=== PATIENT | female | born 1965 | race Caucasian/White ===

== ENCOUNTER 2017-03-07 02:51 | Emergency (ER) | payer OTHER ==
[2017-03-07] MEDS ORDERED: HYDROmorphONE/DILAUDID 1 MG/ML INJ IVP ONE (03:22)
[2017-03-07] MEDS ORDERED: NS 1,000 ML IV ONE (03:22)
[2017-03-07] MEDS ORDERED: ONDANSETRON 4 MG/2 ML VIAL IVP ONE (03:22)
--- NOTE | 2017-03-07 03:26 | EDPHY ---
H & P Time Seen by Provider: 03/07/17 03:15 HPI/ROS: HPI Abdominal pain. 51-year-old female by private vehicle with her daughter. This patient has a history of a hysterectomy with her left ovary removed as well on October 25 of this year. This was secondary to uterine fibroids and endometriosis. She complains of right lower quadrant abdominal pain which she noticed about 10 days ago and described as mild at that time. She reports over the last couple of days and particularly tonight it has gotten much more painful. Her appendix is still in place. Her last meal was earlier this evening at about 6:00 p.m.. Last bowel movement was earlier today. No bloody or melenic stool. Prior surgical history includes as above as well as a laparoscopy secondary to endometriosis. ROS: Constitutional: No fever, no chills. No weakness. Eyes: No discharge. No changes in vision. ENT: No sore throat. No nasal congestion or rhinorrhea. Respiratory: No cough. No shortness of breath. Cardiac: No chest pain, no palpitations. Gastrointestinal: As above, no vomiting, no diarrhea. Genitourinary: No hematuria. No dysuria or increased frequency with urination. Musculoskeletal: No back pain. No neck pain. No myalgias or arthralgias. Skin: No rashes. Neurological: No headache. No focal weakness or altered sensation. Past medical history: As above. Social history: Nonsmoker. No alcohol. Here with her daughter. Physical Exam: General Appearance: Alert, she appears uncomfortable. This patient is responding to questions appropriately and in full sentences. This patient appears well-hydrated and well-nourished. Eyes: Pupils equal and round no pallor or injection. No lid edema, erythema or injection. ENT, Mouth: Mucous membranes are moist. The pharyngeal tissues are unremarkable. No edema or swelling. No asymmetry suggestive of abscess. No erythema or exudates. Respiratory: There are no retractions, lungs are clear to auscultation with good air movement bilaterally. Cardiovascular: Regular rate and rhythm. No murmur. Gastrointestinal: Abdomen is soft with right lower quadrant tenderness on palpation, no masses, bowel sounds normal. No focal tenderness at McBurney's point. No Rivera sign. Neurological: Motor sensory function is grossly intact. Cranial nerves are normal. Gait is normal. Skin: Warm and dry, no rashes. Musculoskeletal: Neck is supple and nontender. Extremities are symmetrical. All joints range without pain or impingement. Psychiatric: No agitation. No depression. Database: EKG: Imaging: CT scan of abdomen and pelvis with IV contrast: The appendix is well visualized and is normal. Constipation is noted. Her right ovary appear small but otherwise unremarkable. No other significant pathology. Results were discussed with staff radiologist Dr. Ad Teixeira. Pelvic ultrasound: Right ovary not visualized. No free fluid. Results discussed with staff radiologist Dr. Ad Teixeira. Procedures: Emergency department course: IV placed. She was placed on a monitor. Her vital signs were reviewed. She is afebrile. Vital signs otherwise normal. She was started on IV normal saline with 1 L to be given over the next hour. She was initially given 0.5 mg of IV hydromorphone and 4 mg of IV Zofran. CT imaging to evaluate for appendicitis was discussed. She endorses. This is unremarkable we will obtain ultrasound imaging to evaluate her right ovary as well. 4:30 a.m., patient re-evaluated. Discussed results of CT with the patient and the daughter. She is feeling better after pain medication as above but still complains of right lower quadrant tenderness. A pelvic ultrasound will be obtained to try him better assess the condition of the right ovary. 5:25 a.m., results of pelvic ultrasound discussed with the patient and her daughter. The patient feels comfortable at this time. Repeat abdominal exam she is soft with mild right lower quadrant tenderness on palpation. I discussed admission for observation but she does not want to do this. Plan will be to have her follow up with her primary care physician for re-evaluation tomorrow. She feels comfortable with this. I will also prescribe magnesium citrate for treatment of constipation. Return to emergency department precautions were thoroughly discussed with her and her daughter. All of their questions were answered. She was discharged home in good condition. Differential Diagnosis: The differential diagnosis on this patient includes but is not limited to appendicitis, right ovarian cyst, ovarian torsion, urinary tract infection, constipation. This represents a partial list of diagnoses considered. These considerations are based on history, physical exam, past history, reassessment and diagnostic testing. Smoking Status: Never smoked Constitutional: Initial Vital Signs Temperature (C) 36.3 C 03/07/17 02:55 Heart Rate 95 03/07/17 02:55 Respiratory Rate 16 03/07/17 02:55 Blood Pressure 123/78 H 03/07/17 02:55 O2 Sat (%) 97 03/07/17 02:55 O2 Delivery Mode Room Air Allergies/Adverse Reactions: No Known Allergies Allergy (Unverified 08/11/13 11:07) Home Medications: Medication Instructions Recorded IBUPROFEN 03/07/17 Medical Decision Making - Data Points Laboratory Results: Laboratory Results 03/07/17 03:20 03/07/17 03:20 03/07/17 03/07/17 03/07/17 03:20 03:20 03:20 WBC 9.31 10^3/uL 10^3/uL (3.80-9.50) RBC 5.12 10^6/uL 10^6/uL (4.18-5.33) Hgb 13.8 g/dL g/dL (12.6-16.3) Hct 43.0 % % (38.0-47.0) MCV 84.0 fL fL (81.5-99.8) MCH 27.0 pg L pg (27.9-34.1) MCHC 32.1 g/dL L g/dL (32.4-36.7) RDW 16.6 % H % (11.5-15.2) Plt Count 270 10^3/uL 10^3/uL (150-400) MPV 9.9 fL fL (8.7-11.7) Neut % (Auto) 65.9 % % (39.3-74.2) Lymph % (Auto) 18.7 % % (15.0-45.0) Meagher % (Auto) 13.1 % H % (4.5-13.0) Eos % (Auto) 0.3 % L % (0.6-7.6) Baso % (Auto) 0.3 % % (0.3-1.7) Nucleat RBC Rel Count 0.0 % % (0.0-0.2) Absolute Neuts (auto) 6.13 10^3/uL 10^3/uL (1.70-6.50) Absolute Lymphs (auto) 1.74 10^3/uL 10^3/uL (1.00-3.00) Absolute Monos (auto) 1.22 10^3/uL H 10^3/uL (0.30-0.80) Absolute Eos (auto) 0.03 10^3/uL 10^3/uL (0.03-0.40) Absolute Basos (auto) 0.03 10^3/uL 10^3/uL (0.02-0.10) Absolute Nucleated RBC 0.00 10^3/uL 10^3/uL (0-0.01) Immature Gran % 1.7 % H % (0.0-1.1) Immature Gran # 0.16 10^3/uL H 10^3/uL (0.00-0.10) Sodium 141 mEq/L mEq/L (134-144) Potassium 3.9 mEq/L mEq/L (3.5-5.2) Chloride 102 mEq/L mEq/L (97-110) Carbon Dioxide 29 mEq/l mEq/l (22-31) Anion Gap 10 mEq/L mEq/L (8-16) BUN 15 mg/dL mg/dL (7-23) Creatinine 0.7 mg/dL mg/dL (0.6-1.0) Estimated GFR > 60 Glucose 106 mg/dL H mg/dL (70-100) Calcium 9.3 mg/dL mg/dL (8.5-10.4) Urine Color PALE YELLOW Urine Appearance CLEAR Urine pH 7.0 (5.0-7.5) Ur Specific [place] 1.008 (1.002-1.030) Urine Protein NEGATIVE (NEGATIVE) Urine Ketones NEGATIVE (NEGATIVE) Urine Blood 1+ H (NEGATIVE) Urine Nitrate NEGATIVE (NEGATIVE) Urine Bilirubin NEGATIVE (NEGATIVE) Urine Urobilinogen NEGATIVE EU EU (0.2-1.0) Ur Leukocyte Esterase NEGATIVE (NEGATIVE) Urine RBC 15-25 /hpf H /hpf (0-3) Urine WBC 1-3 /hpf /hpf (0-3) Ur Epithelial Cells NONE SEEN /lpf /lpf (NONE-1+) Urine Mucus TRACE /lpf /lpf (NONE-1+) Urine Glucose NEGATIVE (NEGATIVE) Medications Given: Discontinued Medications Hydromorphone HCl (Dilaudid) 0.5 mg IVP EDNOW ONE Stop: 03/07/17 03:23 Last Admin: 03/07/17 03:27 Dose: 0.5 mg Sodium Chloride (Ns) 1,000 mls @ 0 mls/hr IV EDNOW ONE; Wide Open PRN Reason: Protocol Stop: 03/07/17 03:23 Last Admin: 03/07/17 03:26 Dose: 1,000 mls Magnesium Citrate (Magnesium Citrate) 300 ml PO ONCE ONE Stop: 03/07/17 05:27 Last Admin: 03/07/17 05:35 Dose: 300 ml Ondansetron HCl (Zofran) 4 mg IVP EDNOW ONE Stop: 03/07/17 03:23 Last Admin: 03/07/17 03:26 Dose: 4 mg Departure - Departure Disposition: Home, Routine, Self-Care Clinical Impression: Lower abdominal pain, Constipation Condition: Good Instructions: Constipation (ED), Abdominal Pain (ED) Additional Instructions: Read and follow provided instructions. Follow-up with your primary care physician in 1-2 days for re-evaluation as discussed. Ibuprofen dosin mg every 6 hours with meals for the next 3 days only. Take only as needed for pain. Magnesium citrate for constipation: Drink over a period of 30 min. Be near bathroom. Return to the emergency department for worsening pain, fever, vomiting or other serious concerns. Referrals: Lavell Snow MD [Primary Care Provider] - As per Instructions
[2017-03-07 03:29] LABS: % IMMATURE GRANULYOCYTES 1.7 % (0.0-1.1); ABSOLUTE IMMATURE GRANULOCYTES 0.16 10^3/uL (0.00-0.10); ADD DIFF? NO; ADD MORPH? NO; ADD SCAN? NO; ATYPICAL LYMPHOCYTE FLAG 0 (0-99); FRAGMENT RBC FLAG 0 (0-99); HEMOGLOBIN 13.8 g/dL (12.6-16.3); LEFT SHIFT FLG 10 (0-99); LIPEMIA HEMOLYSIS FLAG 80 (0-99); MEAN CELL HEMOGLOBIN CONCENTR. 32.1 g/dL (32.4-36.7); MEAN PLATELET VOLUME 9.9 fL (8.7-11.7); PLATELET CLUMPS FLAG 0 (0-99); PLATELET COUNT 270 10^3/uL (150-400); RED BLOOD CELL COUNT 5.12 10^6/uL (4.18-5.33); RED CELL DISTRIBUTION WIDTH 16.6 % (11.5-15.2)
[2017-03-07 03:31] LABS: COLOR PALE YELLOW; LEUKOCYTE ESTERASE,URINE NEGATIVE (NEGATIVE); NITRITE,URINE NEGATIVE (NEGATIVE)
[2017-03-07 03:39] LABS: ANION GAP 10 mEq/L (8-16); CALCIUM 9.3 mg/dL (8.5-10.4); CARBON DIOXIDE 29 mEq/l (22-31); CHLORIDE 102 mEq/L (97-110); CREATININE 0.7 mg/dL (0.6-1.0); GLOMERULAR FILTRATION RATE > 60; GLUCOSE 106 mg/dL (70-100); MUCUS TRACE /lpf (NONE-1+); POTASSIUM 3.9 mEq/L (3.5-5.2); RBC,URINE 15-25 /hpf (0-3); SODIUM 141 mEq/L (134-144)
[2017-03-07] MEDS ORDERED: IOPAMIDOL (ISOVUE-300) 100 ML BTL ONE (03:51)
[2017-03-07] MEDS ORDERED: MAGNESIUM CITRATE 300 ML BOTTLE PO ONE (05:26)
[2017-03-07 05:40] VITALS: BP 125/76; PULSE 87; RESP 18; TEMP 97.5; O2SAT 95
== END 2017-03-07 05:39 | disposition home or self-care (01) ==
DX: K59.00 Constipation, unspecified (principal); E86.9 Volume depletion, unspecified
CPT/HCPCS: 96374; J1170; J2405; Q9967